=== PATIENT | female | born 1975 | race Hispanic/Latino ===

== ENCOUNTER 2018-02-25 18:46 | Emergency (ER) | payer SELFPAY ==
[2018-02-25 19:48] LABS: Urine Blood TRACE (NEG); Urine Glucose 2+ (NEG); Urine Protein 2+ (NEG); Urine pH 5.5 (5.0-7.0)
[2018-02-25 19:56] LABS: Urine Bacteria LOADED /HPF (<20); Urine Culture Reflex Order REFLEXED; Urine Mucus 1+ /HPF (NONE SEEN)
--- NOTE | 2018-02-25 20:30 | RAD REPORT ---
EXAM DESCRIPTION: Niels Single View02/25/2018 8:08 pm CLINICAL HISTORY: sob COMPARISON: none FINDINGS: The lungs appear clear of acute infiltrate. The heart is normal size IMPRESSION: No acute abnormalities displayed
--- NOTE | 2018-02-25 21:04 | RAD REPORT ---
EXAM DESCRIPTION: USExtrem Venous W Compress Bil02/25/2018 8:44 pm CLINICAL HISTORY: Bilateral leg swelling COMPARISON: none FINDINGS: The common femoral, superficial femoral, popliteal and posterior tibial veins bilaterally are compressible and demonstrate augmentation. Doppler demonstrates good flow. IMPRESSION: No evidence of deep venous thrombosis involving either lower extremity.
[2018-02-25] MEDS ORDERED: WATER FOR INJ,STERILE 10 ML ONE (21:22)
[2018-02-25] MEDS ORDERED: CEFTRIAXONE 1000 MG/VIAL ONE (21:22)
[2018-02-25] MEDS ORDERED: ACETAMINOPHEN 500 MG TAB ONE (21:54)
--- NOTE | 2018-02-25 22:03 | EDPHYS ---
Physician Documentation [facility] Name: Leeanne Figueroa Age: 42 yrs Sex: Female : 1975 Arrival Date: 02/25/2018 Time: 18:48 Bed 23 Private MD: ED Physician Jm Kelly HPI: 02/25 20:00 This 42 yrs old Female presents to ER via Ambulatory with complaints of pm1 Bilateral lower extermity swelling, flank pain, and foul smelling urine. 20:00 The patient presents with swelling, to bilateral lower extermities. Context: The pm1 problem was sustained at home, the patient is able to ambulate. 20:00 Onset: The symptoms/episode began/occurred 2 day(s) ago. Modifying factors: The pm1 symptoms are alleviated by nothing. the symptoms are aggravated by nothing. Treatment prior to arrival includes: no previous treatment. Severity of symptoms: in the emergency department the symptoms are actually worse, shortness of breath is not present in the emergency department no chest pain. The patient has experienced a previous episode, many years ago. Patient is currently at drug rehabilitation center for substance abuse. Patient presenting with complaints of bilateral lower extremity swelling, flank pain, and foul smelling urine. Patient without any chest pain or shortness of breath. 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 - Social history:: Smoking status: Patient/guardian denies using tobacco. - Ebola Screening: : Patient denies travel to an Ebola-affected area in the 21 days before illness onset. ROS: 20:00 Constitutional: Negative for fever, chills, and weight loss, Eyes: Negative for injury, pm1 pain, redness, and discharge, ENT: Negative for injury, pain, and discharge, Neck: Negative for injury, pain, and swelling, Respiratory: Negative for shortness of breath, cough, wheezing, and pleuritic chest pain, Abdomen/GI: Negative for abdominal pain, nausea, vomiting, diarrhea, and constipation. 20:00 MS/Extremity: Negative for injury and deformity, Skin: Negative for injury, rash, and discoloration, Neuro: Negative for headache, weakness, numbness, tingling, and seizure. 20:00 Cardiovascular: Positive for edema, bilateral lower extremities, Negative for chest pain, orthopnea, palpitations. 20:00 Back: Positive for flank pain, bilaterally, Negative for decreased range of motion. 20:00 : Positive for flank pain, foul smelling urine. Exam: 20:00 Constitutional: This is a well developed, well nourished patient who is awake, alert, pm1 and in no acute distress. Head/Face: Normocephalic, atraumatic. Eyes: Pupils equal round and reactive to light, extra-ocular motions intact. Lids and lashes normal. Conjunctiva and sclera are non-icteric and not injected. Cornea within normal limits. Periorbital areas with no swelling, redness, or edema. ENT: Nares patent. No nasal discharge, no septal abnormalities noted. Tympanic membranes are normal and external auditory canals are clear. Oropharynx with no redness, swelling, or masses, exudates, or evidence of obstruction, uvula midline. Mucous membranes moist. Neck: Trachea midline, no thyromegaly or masses palpated, and no cervical lymphadenopathy. Supple, full range of motion without nuchal rigidity, or vertebral point tenderness. No Meningismus. Chest/axilla: Normal chest wall appearance and motion. Nontender with no deformity. No lesions are appreciated. Respiratory: Lungs have equal breath sounds bilaterally, clear to auscultation and percussion. No rales, rhonchi or wheezes noted. No increased work of breathing, no retractions or nasal flaring. Abdomen/GI: Soft, non-tender, with normal bowel sounds. No distension or tympany. No guarding or rebound. No evidence of tenderness throughout. Back: No spinal tenderness. No costovertebral tenderness. Full range of motion. 20:00 Skin: Warm, dry with normal turgor. Normal color with no rashes, no lesions, and no evidence of cellulitis. MS/ Extremity: Pulses equal, no cyanosis. Neurovascular intact. Full, normal range of motion. 20:00 Cardiovascular: Rate: normal, Rhythm: regular, Heart sounds: normal, Edema: pedal edema, that is mild, bilateral. 20:00 Neuro: Orientation: is normal, Motor: is normal, no acute changes, moves all fours. Vital Signs: 19:06 BP 126 / 69; Pulse 111; Resp 20; Temp 97.0; Pulse Ox 99% on R/A; Weight 94.8 kg (R); aj1 Height 5 ft. 6 in. (167.64 cm) (R); Pain 6/10; 20:53 BP 159 / 89; Pulse 110; Resp 18; Pulse Ox 96% on R/A; wh 21:55 BP 130 / 82; Pulse 115; Resp 18; Pulse Ox 97% on R/A; wh 22:01 BP 148 / 91; Pulse 107; Resp 18; Pulse Ox 97% on R/A; mt 19:06 Body Mass Index 33.73 (94.80 kg, 167.64 cm) aj1 MDM: 19:26 Patient medically screened. pm1 22:00 Data reviewed: vital signs. Data interpreted: Pulse oximetry: on room air is 97 %. pm1 Interpretation: normal. Counseling: I had a detailed discussion with the patient and/or guardian regarding: the historical points, exam findings, and any diagnostic results supporting the discharge/admit diagnosis, lab results, radiology results, the need for outpatient follow up, to return to the emergency department if symptoms worsen or persist or if there are any questions or concerns that arise at home. 02/25 19:40 Order name: Urine Microscopic Only; Complete Time: 20:17 mg2 02/25 19:43 Order name: Urine Dipstick--Ancillary (enter results); Complete Time: 20:17 ms 02/25 19:43 Order name: Urine --Ancillary (enter results); Complete Time: 20:17 ms 02/25 19:44 Order name: Extrem Venous W Compression Lamonte US; Complete Time: 21:11 pm1 02/25 19:44 Order name: Chest Single View XRAY; Complete Time: 21:11 pm1 02/25 19:57 Order name: Urine Culture EDMS 02/25 19:43 Order name: Urine Dipstick-Ancillary (obtain specimen); Complete Time: 19:50 pm1 02/25 19:43 Order name: Urine Test (obtain specimen); Complete Time: 19:50 pm1 Administered Medications: 21:18 Drug: Rocephin (cefTRIAXone) 1 grams Route: IM; Site: right gluteus; mg2 22:53 Follow up: Response: No adverse reaction 21:47 Drug: Tylenol 1000 mg Route: PO; 22:53 Follow up: Response: No adverse reaction Disposition: 23:09 Co-signature as Attending Physician, Jm Kelly MD. [email or web address] Disposition: 02/25/18 22:02 Discharged to Home. Impression: Urinary tract infection, site not specified, Edema, unspecified - bilateral pedal edema. - Condition is Stable. - Discharge Instructions: Edema, Urinary Tract Infection, Adult. - Prescriptions for Cipro 500 mg Oral Tablet - take 1 tablet by ORAL route every 12 hours for 7 days; 14 tablet. - Medication Reconciliation Form, Thank You Letter, Antibiotic Education form. - Follow up: Emergency Department; When: As needed; Reason: Worsening of condition. Follow up: Private Physician; When: 2 - 3 days; Reason: Recheck today's complaints, Continuance of care, Re-evaluation by your physician. - Problem is new. - Symptoms have improved. Signatures: Dispatcher [employer] [facility] Jessica Rodriguez RN RN aj1 Jm Kelly MD MD pkl Leno Bhatia, SECRETARY RECEPTIONIST SECRETARY RECEPTIONIST pm1 Nelda Zuniga Rakesh Fuller RN RN mg2 Corrections: (The following items were deleted from the chart) 22:55 22:02 02/25/2018 22:02 Discharged to Home. Impression: Urinary tract infection, site wh not specified; Edema, unspecified - bilateral pedal edema. Condition is Stable. Forms are Medication Reconciliation Form, Thank You Letter, Antibiotic Education, Prescription Opioid Use. Follow up: Emergency Department; When: As needed; Reason: Worsening of condition. Follow up: Private Physician; When: 2 - 3 days; Reason: Recheck today's complaints, Continuance of care, Re-evaluation by your physician. Problem is new. Symptoms have improved. pm1
--- NOTE | 2018-02-25 22:03 | ER ---
Nurse's Notes [facility] Name: Leeanne Figueroa Age: 42 yrs Sex: Female : 1975 Arrival Date: 02/25/2018 Time: 18:48 Bed 23 Private MD: Diagnosis: Urinary tract infection, site not specified;Edema, unspecified-bilateral pedal edema Presentation: 02/25 19:02 Presenting complaint: Patient states: "I don't know if I'm retaining water, but my legs aj1 are really swollen and my lower back has been really hurting" Denies dysuria, urinary frequency. States that her urine has had a "different smell than regular urine" Denies SOB, chest pain. Transition of care: patient was not received from another setting of care. Onset of symptoms was February 24, 2018. Risk Assessment: Do you want to hurt yourself or someone else? Patient reports no desire to harm self or others. Initial Sepsis Screen: Does the patient meet any 2 criteria? HR > 90 bpm. Does the patient have a suspected source of infection? No. Patient's initial sepsis screen is negative. Care prior to arrival: None. 19:02 Method Of Arrival: Ambulatory aj1 19:02 Acuity: TAMMI 3 aj1 Triage Assessment: 19:06 General: Appears in no apparent distress. comfortable, Behavior is calm, cooperative, aj1 appropriate for age. Pain: Complains of pain in low back area Pain currently is 6 out of 10 on a pain scale. Neuro: Level of Consciousness is awake, alert, obeys commands. Cardiovascular: Patient's skin is warm and dry. Respiratory: Airway is patent Respiratory effort is even, unlabored, Respiratory pattern is regular, symmetrical. 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 - Social history:: Smoking status: Patient/guardian denies using tobacco. - Ebola Screening: : Patient denies travel to an Ebola-affected area in the 21 days before illness onset. Screenin:20 Abuse screen: Denies threats or abuse. Denies injuries from another. Nutritional wh screening: No deficits noted. Tuberculosis screening: No symptoms or risk factors identified. Fall Risk None identified. Assessment: 20:20 General: Appears in no apparent distress. comfortable, Behavior is calm, cooperative, wh appropriate for age. Pain: Denies pain. Neuro: Level of Consciousness is awake, alert, obeys commands, Oriented to person, place, time, situation, Dry Cleaning Teacher are equal bilaterally. Cardiovascular: Heart tones S1 S2 Capillary refill < 3 seconds. Respiratory: Airway is patent Respiratory effort is even, unlabored, Respiratory pattern is regular, symmetrical, Breath sounds are clear bilaterally. GI: Abdomen is flat, non-distended, Abd is soft and non tender. : No signs and/or symptoms were reported regarding the genitourinary system. EENT: No signs and/or symptoms were reported regarding the EENT system. Derm: Skin is intact, is healthy with good turgor, Skin is pink, warm \\T\\ dry. normal. Musculoskeletal: Range of motion: intact in all extremities, Swelling present in bilateral lwer extremities Pitting +2 started yesterday BLE swelling Pitting +2. 21:54 Reassessment: Patient appears in no apparent distress at this time. Patient and/or wh family updated on plan of care and expected duration. Pain level reassessed. Patient is alert, oriented x 3, equal unlabored respirations, skin warm/dry/pink. 22:52 Reassessment: Patient appears in no apparent distress at this time. Patient and/or wh family updated on plan of care and expected duration. Pain level reassessed. Patient is alert, oriented x 3, equal unlabored respirations, skin warm/dry/pink. Patient denies pain at this time. Vital Signs: 19:06 BP 126 / 69; Pulse 111; Resp 20; Temp 97.0; Pulse Ox 99% on R/A; Weight 94.8 kg (R); aj1 Height 5 ft. 6 in. (167.64 cm) (R); Pain 6/10; 20:53 BP 159 / 89; Pulse 110; Resp 18; Pulse Ox 96% on R/A; wh 21:55 BP 130 / 82; Pulse 115; Resp 18; Pulse Ox 97% on R/A; wh 22:01 BP 148 / 91; Pulse 107; Resp 18; Pulse Ox 97% on R/A; mt 19:06 Body Mass Index 33.73 (94.80 kg, 167.64 cm) [facility] ED Course: 18:48 Patient arrived in ED. as 19:03 Triage completed. aj1 19:06 Arm band placed on Patient placed in an exam room. aj1 19:11 Nelda Zuniga is Primary Nurse. wh 19:25 Leno Bhatia NP is PHCP. pm1 19:25 Jm Kelly MD is Attending Physician. pm1 20:06 X-ray completed. Portable x-ray completed in exam room. Patient tolerated procedure kw well. 20:08 Chest Single View XRAY In Process Unspecified. EDMS 20:20 Bed in low position. Call light in reach. Side rails up X 1. Pulse ox on. NIBP on. 20:42 Ultrasound completed. Patient tolerated well. sg3 20:43 Extrem Venous W Compression Lamonte US In Process Unspecified. EDMS 22:53 No provider procedures requiring assistance completed. Patient did not have IV access during this emergency room visit. Administered Medications: 21:18 Drug: Rocephin (cefTRIAXone) 1 grams Route: IM; Site: right gluteus; mg2 22:53 Follow up: Response: No adverse reaction 21:47 Drug: Tylenol 1000 mg Route: PO; 22:53 Follow up: Response: No adverse reaction Outcome: 22:02 Discharge ordered by . pm1 22:53 Discharged to home Pt with someone form [facility] with her 22:53 Condition: good 22:53 Discharge instructions given to patient, Instructed on discharge instructions, follow up and referral plans. medication usage, POC Edema and UTI Demonstrated understanding of instructions, follow-up care, medications, POC Prescriptions given X 1. 22:55 Patient left the ED. Addendum: 03/01/2018 08:22 Addendum: Culture Results: Positive urine culture. No further action required. Bacteria i w sensitive to prescribed antibiotic. Signatures: Dispatcher [employer] Jessica Leo, RN RN aj1 Sam, Avelina Soto RN RN Brenda Rashid Patrick, DIRECTOR SECURITY RISK MANAGEMENT DIRECTOR SECURITY RISK MANAGEMENT pm1 Elmer, Teri Zuniga, Nelda Dashawn, Nat sg3 Rakesh Fuller RN RN mg2
== END 2018-02-25 22:55 | disposition home or self-care (01) ==
LOC: ER 18:46
DX: N39.0 Urinary tract infection, site not specified (principal); R60.9 Edema, unspecified; E11.9 Type 2 diabetes mellitus without complications; E03.9 Hypothyroidism, unspecified; E78.5 Hyperlipidemia, unspecified; I10 Essential (primary) hypertension
CPT/HCPCS: 71045; 81003; 81015; 81025; 87077; 87086; 87088; 87186; 93970; 96372; 99284

== ENCOUNTER 2018-03-02 18:57 | Emergency (ER) | payer SELFPAY ==
--- NOTE | 2018-03-02 21:05 | ER ---
Nurse's Notes [facility] Name: Leeanne Figueroa Age: 42 yrs Sex: Female : 1975 Arrival Date: 03/02/2018 Time: 19:58 Bed 26 Private MD: Diagnosis: Cellulitis of left lower limb Presentation: 03/02 20:14 Presenting complaint: Patient states: "The swelling in my left hasn't gone down and aj1 it's gotten redder, the skin is real tight on it. I think it's cellulitis, because I've had that on my arm before" Reports that she was seen in this ER on Wednesday for the same complaint, but her leg was not red at that point. Patient was discharged with a Rx for Cipro for a UTI. Transition of care: patient was not received from another setting of care. Onset of symptoms was February 2018. Risk Assessment: Do you want to hurt yourself or someone else? Patient reports no desire to harm self or others. Initial Sepsis Screen: Does the patient meet any 2 criteria? HR > 90 bpm. Does the patient have a suspected source of infection? Yes: Skin breakdown/wound. Care prior to arrival: None. 20:14 Method Of Arrival: Ambulatory aj1 20:14 Acuity: TAMMI 3 aj1 Triage Assessment: 20:17 General: Appears in no apparent distress. comfortable, Behavior is calm, cooperative, aj1 agitated. Pain: Pain currently is 5 out of 10 on a pain scale. Neuro: Level of Consciousness is awake, alert, obeys commands. Cardiovascular: Patient's skin is warm and dry. Respiratory: Airway is patent Respiratory effort is even, unlabored, Respiratory pattern is regular, symmetrical. 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 - Social history:: Smoking status: Patient/guardian denies using tobacco. - Ebola Screening: : Patient denies travel to an Ebola-affected area in the 21 days before illness onset. Screenin:44 Abuse screen: Denies threats or abuse. Denies injuries from another. Nutritional lp1 screening: No deficits noted. Tuberculosis screening: No symptoms or risk factors identified. Fall Risk None identified. Assessment: 20:43 General: Appears in no apparent distress. Behavior is calm, cooperative, appropriate lp1 for age. Pain: Complains of pain in left martinez Pain currently is 7 out of 10 on a pain scale. Quality of pain is described as aching, pressure, Aggravated by increased activity. Neuro: Level of Consciousness is awake, alert, obeys commands. Cardiovascular: Patient's skin is warm and dry. Respiratory: Respiratory effort is even, unlabored. GI: No signs and/or symptoms were reported involving the gastrointestinal system. : No signs and/or symptoms were reported regarding the genitourinary system. EENT: No signs and/or symptoms were reported regarding the EENT system. Derm: Skin is intact, Skin is dry, Skin is normal, redness, swelling noted to left lower leg. Musculoskeletal: Circulation, motion, and sensation intact. Vital Signs: 20:17 BP 146 / 93; Pulse 92; Resp 20; Temp 97.0; Pulse Ox 97% on R/A; Weight 94.8 kg (R); aj1 Height 5 ft. 6 in. (167.64 cm) (R); Pain 5/10; 20:17 Body Mass Index 33.73 (94.80 kg, 167.64 cm) aj1 ED Course: 19:58 Patient arrived in ED. al2 20:16 Triage completed. aj1 20:17 Arm band placed on Patient placed in an exam room. aj1 20:41 Elsa Lomeli FNP-C is [facility]. snw 20:41 Milton Avila MD is Attending Physician. snw 20:43 Taylor Barroso, YARED is Primary Nurse. lp1 20:44 Patient has correct armband on for positive identification. lp1 21:49 No provider procedures requiring assistance completed. Patient did not have IV access lp1 during this emergency room visit. Administered Medications: 21:21 Drug: Clindamycin 600 mg {Note: 2mL in left gluteus, 2mL in right gluteus.} Route: IM; kr2 Site: left gluteus; 21:50 Follow up: Response: No adverse reaction lp1 Outcome: 21:04 Discharge ordered by . elijah 21:49 Discharged to home ambulatory. lp1 21:49 Condition: good 21:49 Discharge instructions given to patient, Instructed on discharge instructions, follow up and referral plans. Demonstrated understanding of instructions, follow-up care. 21:50 Patient left the ED. lp1 Signatures: Jessica Rodriguez RN RN aj1 Elsa Lomeli, WATCH ASSEMBLY INSTRUCTOR-C WATCH ASSEMBLY INSTRUCTOR-Csnw Taylor Barroso RN RN lp1 Clary Kraus RN RN kr2 Deepthi Enciso2
--- NOTE | 2018-03-02 21:05 | EDPHYS ---
Physician Documentation [facility] Name: Leeanne Figueroa Age: 42 yrs Sex: Female : 1975 Arrival Date: 03/02/2018 Time: 19:58 Bed 26 Private MD: ED Physician Milton Avila HPI: 03/02 21:09 This 42 yrs old Female presents to ER via Ambulatory with complaints of Leg snw Pain, Leg Swelling. 21:09 The patient presents with area of left lower leg has become a little more erythematous snw since DVT study Wednesday. The complaints affect the left martinez. Context: The problem was sustained at home, resulted from an unknown cause, the patient can fully bear weight, the patient is able to ambulate. Onset: The symptoms/episode began/occurred gradually, 1 day(s) ago, and became persistent. Associated signs and symptoms: The patient has no apparent associated signs or symptoms. Severity of symptoms: At their worst the symptoms were very mild, mild. The patient has experienced similar episodes in the past. The patient has been recently seen by a physician: The patient has been recently seen at the [facility] Emergency Department, this week. 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 - Social history:: Smoking status: Patient/guardian denies using tobacco. - Ebola Screening: : Patient denies travel to an Ebola-affected area in the 21 days before illness onset. ROS: 21:07 Constitutional: Negative for fever, chills, and weight loss, Eyes: Negative for injury, snw pain, redness, and discharge, ENT: Negative for injury, pain, and discharge, Neck: Negative for injury, pain, and swelling, Cardiovascular: Negative for chest pain, palpitations, and edema, Respiratory: Negative for shortness of breath, cough, wheezing, and pleuritic chest pain, Abdomen/GI: Negative for abdominal pain, nausea, vomiting, diarrhea, and constipation, Back: Negative for injury and pain, : Negative for injury, bleeding, discharge, and swelling, MS/Extremity: Negative for injury and deformity, Neuro: Negative for headache, weakness, numbness, tingling, and seizure. 21:07 Skin: Positive for cellulitis, of the left martinez, pt has had edema bilaterally with negative dvt study but left leg has become a little more erythematous. Taking Cipro for UTI, will add Clindamycin. Exam: 21:06 Constitutional: This is a well developed, well nourished patient who is awake, alert, snw and in no acute distress. Head/Face: Normocephalic, atraumatic. Eyes: Pupils equal round and reactive to light, extra-ocular motions intact. Lids and lashes normal. Conjunctiva and sclera are non-icteric and not injected. Cornea within normal limits. Periorbital areas with no swelling, redness, or edema. ENT: Nares patent. No nasal discharge, no septal abnormalities noted. Tympanic membranes are normal and external auditory canals are clear. Oropharynx with no redness, swelling, or masses, exudates, or evidence of obstruction, uvula midline. Mucous membranes moist. Neck: Trachea midline, no thyromegaly or masses palpated, and no cervical lymphadenopathy. Supple, full range of motion without nuchal rigidity, or vertebral point tenderness. No Meningismus. Chest/axilla: Normal chest wall appearance and motion. Nontender with no deformity. No lesions are appreciated. Cardiovascular: Regular rate and rhythm with a normal S1 and S2. No gallops, murmurs, or rubs. Normal PMI, no JVD. No pulse deficits. Respiratory: Lungs have equal breath sounds bilaterally, clear to auscultation and percussion. No rales, rhonchi or wheezes noted. No increased work of breathing, no retractions or nasal flaring. Abdomen/GI: Soft, non-tender, with normal bowel sounds. No distension or tympany. No guarding or rebound. No evidence of tenderness throughout. Back: No spinal tenderness. No costovertebral tenderness. Full range of motion. Neuro: Awake and alert, GCS 15, oriented to person, place, time, and situation. Cranial nerves II-XII grossly intact. Motor strength 5/5 in all extremities. Sensory grossly intact. Cerebellar exam normal. Normal gait. Psych: Awake, alert, with orientation to person, place and time. Behavior, mood, and affect are within normal limits. 21:06 Skin: Appearance: normal except for affected area, cellulitis, that is mild, on the left martinez, with abrasions and + breaks in the skin to left, + edema bilaterally, DVT study Wednesday negative bilaterally. Vital Signs: 20:17 BP 146 / 93; Pulse 92; Resp 20; Temp 97.0; Pulse Ox 97% on R/A; Weight 94.8 kg (R); aj1 Height 5 ft. 6 in. (167.64 cm) (R); Pain 5/10; 20:17 Body Mass Index 33.73 (94.80 kg, 167.64 cm) aj1 MDM: 20:45 Patient medically screened. snw 21:09 Data reviewed: vital signs, nurses notes. Data interpreted: Pulse oximetry: on room air snw is 97 %. Counseling: I had a detailed discussion with the patient and/or guardian regarding: the historical points, exam findings, and any diagnostic results supporting the discharge/admit diagnosis, the presence of at least one elevated blood pressure reading (>120/80) during this emergency department visit, to return to the emergency department if symptoms worsen or persist or if there are any questions or concerns that arise at home. Special discussion: I have referred the patient to see his PCP for further evaluation of high blood pressure. I discussed in detail with the patient the higher chance of wound infection based on his presenting history. Based on the history and exam findings, there is no indication for further emergent testing or inpatient evaluation. I discussed with the patient/guardian the need to see the primary care provider for further evaluation of the symptoms. Administered Medications: 21:21 Drug: Clindamycin 600 mg {Note: 2mL in left gluteus, 2mL in right gluteus.} Route: IM; kr2 Site: left gluteus; 21:50 Follow up: Response: No adverse reaction lp1 Disposition: 03/03 17:04 Co-signature as Attending Physician, Milton Avila MD I agree with the assessment and wa plan of care. Disposition: 03/02/18 21:04 Discharged to Home. Impression: Cellulitis of left lower limb. - Condition is Stable. - Medication Reconciliation Form, Thank You Letter, Antibiotic Education, Prescription Opioid Use form. - Follow up: Private Physician; When: 2 - 3 days; Reason: Recheck today's complaints, Continuance of care, Re-evaluation by your physician. Follow up: Emergency Department; When: As needed; Reason: Worsening of condition. Signatures: Jessica Rodriguez, RN RN aj1 Elsa Lomeli, BURGLAR ALARM MECHANIC-C BURGLAR ALARM MECHANIC-Csnw Taylor Barroso RN RN lp1 Milton Avila MD MD wa Reaves, Karey RN RN kr2 Corrections: (The following items were deleted from the chart) 03/02 21:50 21:04 03/02/2018 21:04 Discharged to Home. Impression: Cellulitis of left lower limb. lp1 Condition is Stable. Forms are Medication Reconciliation Form, Thank You Letter, Antibiotic Education, Prescription Opioid Use. Follow up: Private Physician; When: 2 - 3 days; Reason: Recheck today's complaints, Continuance of care, Re-evaluation by your physician. Follow up: Emergency Department; When: As needed; Reason: Worsening of condition. snw
[2018-03-02] MEDS ORDERED: CLINDAMYCIN IV 150 MG/ML (4 mL) VIAL ONE (21:22)
== END 2018-03-02 21:50 | disposition home or self-care (01) ==
LOC: ER 19:56
DX: L03.116 Cellulitis of left lower limb (principal); I10 Essential (primary) hypertension; E11.9 Type 2 diabetes mellitus without complications; E03.9 Hypothyroidism, unspecified; E78.5 Hyperlipidemia, unspecified
CPT/HCPCS: 96372; 99283; S0077

== ENCOUNTER 2018-03-06 18:41 | Emergency (ER) | payer SELFPAY ==
--- NOTE | 2018-03-06 20:31 | EDPHYS ---
Physician Documentation [facility] Name: Leeanne Figueroa Age: 42 yrs Sex: Female : 1975 Arrival Date: 03/06/2018 Time: 18:43 Bed 28 Private MD: ED Physician Brady Bingham HPI: 03/06 20:28 This 42 yrs old Female presents to ER via Ambulatory with complaints of Leg pm1 swelling. 21:03 The patient presents with cellulitis of the left martinez. Onset: The symptoms/episode pm1 began/occurred 2 week(s) ago. Possible cause(s): unknown. Associated signs and symptoms: Pertinent negatives: chest pain and shortness of breath. Modifying factors: the symptoms are alleviated by nothing, the symptoms are aggravated by nothing. Severity of symptoms: in the emergency department the symptoms are unchanged. The patient has been recently seen at the [facility] Emergency Department, for similar complaints given IM antibiotics 4 days ago. Patient was currently taking Cipro for UTI and was given IM clindamycin. Patient completed Cipro yesterday. Sent her by rehabilitation center for evaluation and treatment of cellulitis. Rehabilitation center afraid that it might be MRSA. 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 - Social history:: Smoking status: Patient/guardian denies using tobacco. - Ebola Screening: : Patient negative for fever greater than or equal to 101.5 degrees Fahrenheit, and additional compatible Ebola Virus Disease symptoms Patient denies exposure to infectious person Patient denies travel to an Ebola-affected area in the 21 days before illness onset No symptoms or risks identified at this time. ROS: 21:03 Constitutional: Negative for fever, chills, and weight loss, Eyes: Negative for injury, pm1 pain, redness, and discharge, ENT: Negative for injury, pain, and discharge, Neck: Negative for injury, pain, and swelling, Cardiovascular: Negative for chest pain, palpitations, and edema, Respiratory: Negative for shortness of breath, cough, wheezing, and pleuritic chest pain, Abdomen/GI: Negative for abdominal pain, nausea, vomiting, diarrhea, and constipation, Back: Negative for injury and pain, : Negative for injury, bleeding, discharge, and swelling. 21:03 Neuro: Negative for headache, weakness, numbness, tingling, and seizure. 21:03 MS/extremity: Positive for swelling, of the right leg and left leg. 21:03 Skin: Positive for redness to left martinez. Exam: 21:03 Constitutional: This is a well developed, well nourished patient who is awake, alert, pm1 and in no acute distress. Head/Face: Normocephalic, atraumatic. Eyes: Pupils equal round and reactive to light, extra-ocular motions intact. Lids and lashes normal. Conjunctiva and sclera are non-icteric and not injected. Cornea within normal limits. Periorbital areas with no swelling, redness, or edema. ENT: Nares patent. No nasal discharge, no septal abnormalities noted. Tympanic membranes are normal and external auditory canals are clear. Oropharynx with no redness, swelling, or masses, exudates, or evidence of obstruction, uvula midline. Mucous membranes moist. Neck: Trachea midline, no thyromegaly or masses palpated, and no cervical lymphadenopathy. Supple, full range of motion without nuchal rigidity, or vertebral point tenderness. No Meningismus. Chest/axilla: Normal chest wall appearance and motion. Nontender with no deformity. No lesions are appreciated. Respiratory: Lungs have equal breath sounds bilaterally, clear to auscultation and percussion. No rales, rhonchi or wheezes noted. No increased work of breathing, no retractions or nasal flaring. Abdomen/GI: Soft, non-tender, with normal bowel sounds. No distension or tympany. No guarding or rebound. No evidence of tenderness throughout. Back: No spinal tenderness. No costovertebral tenderness. Full range of motion. 21:03 MS/ Extremity: Pulses equal, no cyanosis. Neurovascular intact. Full, normal range of motion. 21:03 Cardiovascular: Rate: normal, Rhythm: regular, Edema: pedal edema, that is mild, bilateral. 21:03 Skin: Appearance: normal except for affected area, cellulitis, that is minimal, on the left martinez. 21:03 Neuro: Orientation: is normal, Motor: is normal, moves all fours, strength is normal, strength is 5/5 in all extremities, Gait: is steady, at a normal pace, without difficulty. Vital Signs: 18:49 BP 145 / 96; Pulse 100; Resp 20; Temp 98.5; Pulse Ox 100% on R/A; Weight 95.25 kg; aj Height 5 ft. 6 in. (167.64 cm); 18:49 Body Mass Index 33.89 (95.25 kg, 167.64 cm) aj MDM: 19:13 Patient medically screened. pm1 20:28 Data reviewed: vital signs. Data interpreted: Pulse oximetry: on room air is 100 %. pm1 Interpretation: normal. Counseling: I had a detailed discussion with the patient and/or guardian regarding: the historical points, exam findings, and any diagnostic results supporting the discharge/admit diagnosis, the need for outpatient follow up, to return to the emergency department if symptoms worsen or persist or if there are any questions or concerns that arise at home. Administered Medications: No medications were administered Disposition: 22:16 Co-signature as Attending Physician, Brady Bingham MD. rn Disposition: 03/06/18 20:30 Discharged to Home. Impression: Cellulitis of left lower limb. - Condition is Stable. - Discharge Instructions: Cellulitis, Adult. - Prescriptions for Bactrim DS 800- 160 mg Oral Tablet - take 1 tablet by ORAL route every 12 hours for 10 days; 20 tablet. - Medication Reconciliation Form, Thank You Letter, Antibiotic Education form. - Follow up: Emergency Department; When: As needed; Reason: Worsening of condition. Follow up: Private Physician; When: 2 - 3 days; Reason: Recheck today's complaints, Continuance of care, Re-evaluation by your physician. - Problem is new. - Symptoms have improved. Signatures: Shannon Barrett RN RN aj Nieto, Roman, MD MD rn Marinas, Patrick, SERGIO LAST SAWYER pm1 Rakesh Fuller RN RN mg2 Corrections: (The following items were deleted from the chart) 20:56 20:30 03/06/2018 20:30 Discharged to Home. Impression: Cellulitis of left lower limb. mg2 Condition is Stable. Forms are Medication Reconciliation Form, Thank You Letter, Antibiotic Education, Prescription Opioid Use. Follow up: Emergency Department; When: As needed; Reason: Worsening of condition. Follow up: Private Physician; When: 2 - 3 days; Reason: Recheck today's complaints, Continuance of care, Re-evaluation by your physician. Problem is new. Symptoms have improved. pm1
--- NOTE | 2018-03-06 20:31 | ER ---
Nurse's Notes [facility] Name: Leeanne Figueroa Age: 42 yrs Sex: Female : 1975 Arrival Date: 03/06/2018 Time: 18:43 Bed 28 Private MD: Diagnosis: Cellulitis of left lower limb Presentation: 03/06 18:47 Presenting complaint: Patient states: "The rehab I'm in wants me to be cleared for aj MRSA." Reports swelling to bilateral legs for 2 weeks. Transition of care: patient was not received from another setting of care. Onset of symptoms was February 21, 2018. Risk Assessment: Do you want to hurt yourself or someone else? Patient reports no desire to harm self or others. Initial Sepsis Screen: Does the patient meet any 2 criteria? No. Patient's initial sepsis screen is negative. Does the patient have a suspected source of infection? No. Patient's initial sepsis screen is negative. Care prior to arrival: None. 18:47 Method Of Arrival: Ambulatory aj 18:47 Acuity: TAMMI 5 aj Triage Assessment: 18:49 General: Appears in no apparent distress. comfortable, Behavior is calm, cooperative, aj appropriate for age. Pain: Denies pain. Neuro: Level of Consciousness is awake, alert, obeys commands, Oriented to person, place, time, situation, Appropriate for age. Respiratory: Airway is patent Respiratory effort is even, unlabored, Respiratory pattern is regular, symmetrical. GI: Reports nausea. Derm: Skin is intact, is healthy with good turgor, Skin is pink, warm \\T\\ dry. normal. Musculoskeletal: Swelling present in left martinez and anterior aspect of left ankle. 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 - Social history:: Smoking status: Patient/guardian denies using tobacco. - Ebola Screening: : Patient negative for fever greater than or equal to 101.5 degrees Fahrenheit, and additional compatible Ebola Virus Disease symptoms Patient denies exposure to infectious person Patient denies travel to an Ebola-affected area in the 21 days before illness onset No symptoms or risks identified at this time. Screenin:55 Abuse screen: Denies threats or abuse. Denies injuries from another. Nutritional mg2 screening: No deficits noted. Tuberculosis screening: No symptoms or risk factors identified. Fall Risk None identified. Assessment: 20:53 General: Appears in no apparent distress. comfortable, Behavior is calm, cooperative. mg2 Pain: Complains of pain in left leg Pain does not radiate. Pain currently is 3 out of 10 on a pain scale. Quality of pain is described as aching. Neuro: Level of Consciousness is awake, alert, obeys commands, Oriented to person, place, time, situation. Cardiovascular: Capillary refill < 3 seconds Patient's skin is warm and dry. Respiratory: Airway is patent Respiratory effort is even, unlabored, Respiratory pattern is regular, symmetrical. GI: No deficits noted. GI: No signs and/or symptoms were reported involving the gastrointestinal system. : No deficits noted. EENT: No deficits noted. Derm: Skin is intact, is healthy with good turgor, Skin is pink, warm \\T\\ dry. normal, redness/cellulitis in the left leg. Derm: Musculoskeletal: No signs and/or symptoms reported regarding the musculoskeletal system. Vital Signs: 18:49 BP 145 / 96; Pulse 100; Resp 20; Temp 98.5; Pulse Ox 100% on R/A; Weight 95.25 kg; aj Height 5 ft. 6 in. (167.64 cm); 18:49 Body Mass Index 33.89 (95.25 kg, 167.64 cm) aj ED Course: 18:43 Patient arrived in ED. mr 18:49 Triage completed. aj 18:49 Arm band placed on right wrist. Patient placed in waiting room. aj 19:13 Leno Bhatia NP is PHCP. pm1 19:13 Brady Bingham MD is Attending Physician. pm1 19:29 Rakesh Fuller, YARED is Primary Nurse. mg2 20:55 No provider procedures requiring assistance completed. Patient did not have IV access mg2 during this emergency room visit. 20:56 Patient has correct armband on for positive identification. mg2 Administered Medications: No medications were administered Outcome: 20:30 Discharge ordered by MD. pm1 20:55 Discharged to home ambulatory. mg2 20:55 Condition: stable 20:55 Discharge instructions given to patient, Instructed on discharge instructions, follow up and referral plans. medication usage, Demonstrated understanding of instructions, follow-up care, medications, Prescriptions given X 1. 20:56 Patient left the ED. mg2 Signatures: Shannon Barrett RN RN Khushboo Parker Patrick, MOLD FILLER MOLD FILLER pm1 Rakesh Fuller RN RN mg2 Corrections: (The following items were deleted from the chart) 18:51 18:49 Arm band placed on right wrist. Patient placed in an exam room, bob rojas
== END 2018-03-06 20:56 | disposition home or self-care (01) ==
LOC: ER 18:41
DX: L03.116 Cellulitis of left lower limb (principal); E11.9 Type 2 diabetes mellitus without complications; E78.5 Hyperlipidemia, unspecified; I10 Essential (primary) hypertension; E03.9 Hypothyroidism, unspecified; Z79.4 Long term (current) use of insulin; Z79.899 Other long term (current) drug therapy; Z87.440 Personal history of urinary (tract) infections; Z86.19 Personal history of other infectious and parasitic diseases
CPT/HCPCS: 99282